=== PATIENT | male | born 1995 | race Caucasian/White ===

== ENCOUNTER 2019-03-30 12:57 | Emergency (ER) | payer OTHER, SELFPAY ==
[2019-03-30 13:02] VITALS: BP 119/92; PULSE 92; RESP 20; TEMP 36.4; O2SAT 99
--- NOTE | 2019-03-30 13:21 | ED.GENADULT ---
HPI - General Adult General Chief complaint: Back Pain/Injury Stated complaint: LOW BACK PAIN Time Seen by Provider: 03/30/19 13:12 Source: patient and RN notes reviewed Mode of arrival: ambulatory Limitations: no limitations History of Present Illness HPI narrative: Patient presents today complaining of low back pain since yesterday. Denies any injury or recent lifting, twisting, or jumping. States pain slowly developed while he was lying down. Denies radiation of pain. Denies numbness or tingling in the extremities. Denies any loss of bowel or bladder control. States current pain is similar to pain he had approximately 2 years ago when he strained his back while doing a lift at the gym. Pain increases when he is sitting and decreases when he is standing up. Pain also increases if he is standing and extends his left leg out in front of him. Currently rates pain 4/10 and has been taking ibuprofen without relief. MD complaint: Back pain Related Data Home Medications Medication Instructions Recorded Confirmed lisdexamfetamine [Vyvanse] 70 mg PO QAM 01/09/19 03/30/19 Vitamin D3 03/30/19 mecobalamin (vitamin B12) 03/30/19 Allergies Allergy/AdvReac Type Severity Reaction Status Date / Time minocycline Allergy Unknown Rash Verified 03/30/19 13:08 Review of Systems Review of Systems: Narrative: CONSTITUTIONAL: Denies body aches, fever, chills, or sweats. EYES: Denies visual changes, redness, or discharge. ENT: Denies rhinorrhea, congestion, sore throat, or otalgia. CARDIOVASCULAR: Denies chest pain, palpitations, or edema. RESPIRATORY: Denies cough or dyspnea. GASTROINTESTINAL: Denies abdominal pain, nausea, vomiting, or diarrhea. GENITOURINARY: Denies dysuria or hematuria. SKIN: Denies rash, itching, or wounds. MUSCULOSKELETAL: Denies joint pain, or myalgia.+ Low back pain NEUROLOGIC: Denies headache, numbness, tingling, or weakness. PSYCH: Denies depression or anxiety. PMFSH Comments At time of signature, I have reviewed and agree with nursing past medical, surgical, social and family history unless otherwise noted. Please see nursing chart for further information. There is no relevant family history pertinent to the presenting complaint Exam Narrative: Exam Narrative: GENERAL: Well-appearing, over-nourished, and in no acute distress. HEAD: Normocephalic, atraumatic. EYES: EOMI. No redness or drainage. Conjunctivae normal. ENT: Mucous membranes pink and moist. NECK: Normal AROM. Supple. No lymphadenopathy. CHEST: No respiratory distress. MUSCULOSKELETAL: Midline lower lumbar tenderness. No SI joint tenderness. Distal and saddle sensation normal. Patient able to stand on each foot separately without instability. EXTREMITIES: Normal range of motion. No edema. SKIN: Warm, dry, no rash. NEURO: No focal deficits. Alert and oriented x3. Gait steady. PSYCH: Normal affect. No signs of depression or anxiety. Course Vital Signs Vital signs: Vital Signs Temperature 97.5 F L 03/30/19 13:02 Pulse Rate 92 03/30/19 13:02 Respiratory Rate 03/30/19 13:02 Blood Pressure 119/92 H 03/30/19 13:02 Pulse Oximetry 99 03/30/19 13:02 Temperature 97.5 F L 03/30/19 13:02 Pulse Rate 92 03/30/19 13:02 Respiratory Rate 03/30/19 13:02 Blood Pressure 119/92 H 03/30/19 13:02 Pulse Oximetry 99 03/30/19 13:02 Reviewed. Pt has been instructed to follow up with his PCP regarding his elevated blood pressure today. Medical Decision Making Differential Diagnosis Differential Diagnosis: Back strain, bulging disc, osteoarthritis Vital Signs Vital Signs: Vital Signs Temperature 97.5 F L 03/30/19 13:02 Pulse Rate 92 03/30/19 13:02 Respiratory Rate 03/30/19 13:02 Blood Pressure 119/92 H 03/30/19 13:02 Pulse Oximetry 99 03/30/19 13:02 Temperature 97.5 F L 03/30/19 13:02 Pulse Rate 92 03/30/19 13:02 Respiratory Rate 03/30/19 13:02 Blood Pressure 119
== END 2019-03-30 13:32 | disposition home or self-care (01) ==
PROVIDERS: Emergency Provider Nurse Practitioner
DX: S39.012A Strain of muscle, fascia and tendon of lower back, initial encounter (principal); X58.XXXA Exposure to other specified factors, initial encounter; G47.30 Sleep apnea, unspecified; F90.9 Attention-deficit hyperactivity disorder, unspecified type
CPT/HCPCS: 99213; G0463